=== PATIENT | male | born 1955 | race Caucasian/White ===

== ENCOUNTER 2019-02-14 13:47 | Emergency (ER) | payer OTHER, BC ==
[~2019-02-14] VITALS: Ht 182.9 cm; Wt 157.9 kg
[2019-02-14 13:52] VITALS: BP 145/71
--- NOTE | 2019-02-14 13:57 | NUR ---
PT AMBULATES TO CHAIR E
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
--- NOTE | 2019-02-14 14:30 | NUR ---
AAOX4. CLEAR SPEECH. NON DIAPORETIC. NO S/SX OF HYPOGLYCEMIA. WILL CONTINUE TO MONITOR.
[2019-02-14] MEDS ORDERED: FURO-570 PO (14:42)
[2019-02-14] MEDS ORDERED: [UNRECOGNIZED DRUG - CODE] (14:42)
[2019-02-14] MEDS ORDERED: AMLO2.5T PO (14:42)
[2019-02-14] MEDS ORDERED: LORA10TA19 PO (14:42)
[2019-02-14] MEDS ORDERED: RAMI5CAP32 PO ×2 (14:42)
[2019-02-14] MEDS ORDERED: ZAR2.5 PO (14:42)
[2019-02-14] MEDS ORDERED: FEBU80TA PO (14:42)
[2019-02-14] MEDS ORDERED: HUM SUBQ (14:42)
[2019-02-14] MEDS ORDERED: CARI350T PO (14:42)
[2019-02-14] MEDS ORDERED: ACET-9882 PO (14:42)
[2019-02-14] MEDS ORDERED: [UNRECOGNIZED DRUG - CODE] PO (14:52)
[2019-02-14] MEDS ORDERED: INSU300S SC (14:52)
--- NOTE | 2019-02-14 15:15 | NUR ---
AAOX4. CLEAR SPEECH. SKIN WARM AND DRY TO TOUCH. NO SIGNS AND SYMPTOMS OF HYPOGLYCEMIA.
[2019-02-14 16:11] VITALS: BP 115/76
--- NOTE | 2019-02-14 16:11 | NUR ---
Patient discharged with v/s stable. Written and verbal after care instructions given and explained. Patient verbalized understanding. Ambulatory with steady gait. All questions addressed prior to discharge. Advised to follow up with PMD.
== END 2019-02-14 16:11 | disposition home or self-care (01) ==
LOC: MED 13:47
DX: E11.22 Type 2 diabetes mellitus with diabetic chronic kidney disease (principal); I12.9 Hypertensive chronic kidney disease with stage 1 through stage 4 chronic kidney disease, or unspecified chronic kidney disease; N18.9 Chronic kidney disease, unspecified; Z79.4 Long term (current) use of insulin; Z79.1 Long term (current) use of non-steroidal anti-inflammatories (NSAID); Z79.899 Other long term (current) drug therapy
CPT/HCPCS: 82948; 93005; 99283

== ENCOUNTER 2019-09-17 11:24 | Emergency (ER) | payer OTHER, BC ==
[~2019-09-17] VITALS: Ht 180.3 cm; Wt 156.5 kg
[~2019-09-17 11:24] MED LIST: ACET-9882 PO; AMLO2.5T PO; CARI350T PO; FEBU80TA PO; FURO-570 PO; HUM SUBQ; INSU300S SC; LORA10TA19 PO; RAMI5CAP32 PO; ZAR2.5 PO; [UNRECOGNIZED DRUG - CODE]; [UNRECOGNIZED DRUG - CODE] PO
[2019-09-17 11:25] VITALS: BP 120/84
--- NOTE | 2019-09-17 11:33 | NUR ---
PT AMBULATED TO ER BED 11
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
--- NOTE | 2019-09-17 11:47 | NUR ---
DR. NAJERA EVALUATING PT AT BEDSIDE.
[2019-09-17] MEDS ORDERED: diphenhydrAMINE 50 MG/ML VIAL IM ONE (12:05)
[2019-09-17] MEDS ORDERED: MORPHINE SULFATE 4 MG/ML SYR IM ONE (12:05)
[2019-09-17] MEDS ORDERED: KETOROLAC 60 MG/2 ML VIAL IM ONE (12:05)
--- NOTE | 2019-09-17 12:22 | NUR ---
PT STATES PAIN OF 5-6/10. CLARIFIED WITH DR. NAJERA REGARDING DOSE OF MORPHINE. PER CLINT VARGAS TO ADMINISTER 8MG MORPHINE IM.
--- NOTE | 2019-09-17 12:37 | NUR ---
PT STATES CKD STAGE 4. CLARIFIED WITH DR. NAJERA REGARDING ORDERED TORADOL 60 MG IM. RECEIVED ORDER TO CANCEL CURRENT ORDER AND PLACE ORDER FOR TORADOL 30 MG IM.
[2019-09-17] MEDS ORDERED: KETOROLAC 30 MG/ML VIAL IM ONE (12:40)
--- NOTE | 2019-09-17 12:45 | NUR ---
WILL ADMINISTERED ORDERED TORADOL WHEN PATIENT BACK FROM IMAGING SCANS.
[2019-09-17 15:55] VITALS: BP 124/54
== END 2019-09-17 15:55 | disposition home or self-care (01) ==
LOC: MED 11:24
DX: S16.1XXA Strain of muscle, fascia and tendon at neck level, initial encounter (principal); S39.012A Strain of muscle, fascia and tendon of lower back, initial encounter; E11.22 Type 2 diabetes mellitus with diabetic chronic kidney disease; I12.9 Hypertensive chronic kidney disease with stage 1 through stage 4 chronic kidney disease, or unspecified chronic kidney disease; N18.9 Chronic kidney disease, unspecified; Z79.4 Long term (current) use of insulin; Z79.899 Other long term (current) drug therapy; V89.2XXA Person injured in unspecified motor-vehicle accident, traffic, initial encounter; Y93.89 Activity, other specified; Y92.488 Other paved roadways as the place of occurrence of the external cause; Y99.8 Other external cause status
CPT/HCPCS: 71046; 72040; 72100; 96372; 99283; J1200; J1885; J2270

== ENCOUNTER 2020-08-14 11:27 | Emergency (ER) | payer OTHER, BC ==
[~2020-08-14] VITALS: Ht 180.3 cm; Wt 153.3 kg
[2020-08-14 11:32] VITALS: BP 118/51
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
[2020-08-14 13:08] VITALS: BP 103/49
== END 2020-08-14 13:07 | disposition home or self-care (01) ==
LOC: MED 11:27
DX: I10 Essential (primary) hypertension (principal); E11.9 Type 2 diabetes mellitus without complications; N28.9 Disorder of kidney and ureter, unspecified; Z79.899 Other long term (current) drug therapy; Z00.00 Encounter for general adult medical examination without abnormal findings
CPT/HCPCS: 99281